=== PATIENT | male | born 1980 | race Caucasian/White ===

== ENCOUNTER 2024-02-28 06:14 | Emergency (ER) | payer BC, SELFPAY ==
[2024-02-28 06:16] VITALS: BP 118/70; PULSE 62; RESP 26; TEMP 36.4; O2SAT 97; BMI 28.4
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
[2024-02-28] MEDS: diphenhydrAMINE 25MG CAPSULE 25 MG PO (06:42)
--- NOTE | 2024-02-28 06:43 | PC.NURSE ---
Pt states he's not able to quit itching. This RN gave him Benadryl and will evaluate after.
[2024-02-28 07:12] VITALS: BP 117/89; PULSE 92; RESP 17; O2SAT 97
[2024-02-28 07:29] VITALS: BP 117/89; PULSE 95; RESP 18; TEMP 36.7; O2SAT 94
== END 2024-02-28 07:32 | disposition home or self-care (01) ==
PROVIDERS: Emergency Provider Emergency Medicine
DX: L50.0 Allergic urticaria (principal); R00.0 Tachycardia, unspecified; F41.9 Anxiety disorder, unspecified; F17.210 Nicotine dependence, cigarettes, uncomplicated; T50.995A Adverse effect of other drugs, medicaments and biological substances, initial encounter
CPT/HCPCS: 99283

== ENCOUNTER 2024-02-29 18:07 | Emergency (ER) | payer BC, SELFPAY ==
[2024-02-29] VITALS (12 sets, daily range): BP systolic 102–151; BP diastolic 67–95; PULSE 69–121; RESP 16–24; TEMP 36.7–37; O2SAT 91–99; BMI 24.3
--- NOTE | 2024-02-29 18:23 | ED_ITS ---
<Statement entered by Rachelle Wong MD - 02/29/24 22:55> I was consulted by the ANDREW, and we discussed the complexity of the problems being addressed. I approved the treatment and management plan for this patient's care in the emergency department, thus performing a substantive portion of the medical decision making. Rachelle Wong MD, LEO, FACEP Discharge Plan Disposition Patient Disposition: Xfer Short-Term Hosp Condition: Good Chief Complaint: Abdominal Pain Prescriptions Prescriptions: No Action oxycodone 5 mg tablet 5 mg PO Q6H PRN (Reason: pain) Qty: 10 0RF epinephrine 0.3 mg/0.3 mL auto-injector 0.3 mg IM Q15M PRN (Reason: anaphylaxis) Qty: 2 0RF Rx Instructions: for 2 doses Referrals Follow up/Referrals: Provider,Nehemias, [Primary Care Provider] - See instructions Activity Restrictions/Add. Instructions Additional Instructions/Restrictions: Patient to be transferred to the hospital medicine service at [facility] in care of Dr Mcmillan Clinical Impressions Clinical Impression: Sepsis without septic shock, Dehiscence of operative wound Stand Alone Forms Stand Alone Forms: Transfer Record - ED Instructions Patient Instructions: DI for Acute Abdominal Pain Discharge ED Provider: Rachelle Wong General Adult HPI General Chief complaint: Abdominal Pain Stated complaint: recent surgery Time Seen by Provider: 02/29/24 18:22 History of Present Illness HPI narrative: Patient presents for evaluation of acute abdominal pain. Patient is postoperative day 12 of a diverting ileostomy. Patient initially had a Fajardo's pouch procedure and was scheduled for a ostomy takedown on 02/17/2024. However it was not able to be reversed initially and thus the surgeon created a loop ileostomy. Patient was discharged on 02/24/2024. Patient has been doing well until yesterday when he developed an anaphylactic reaction to his pain medicine. He was seen in our ER yesterday and discontinued from his hydrocodone and placed on oxycodone. Patient reports that he began having pain in the ostomy location today and has progressed to the point where he can tolerate nothing by mouth without pain. Denies chest pain fever chills hemoptysis medic easier melena hematemesis. Patient cannot tell me how much ostomy output has had. On arrival patient had succus over his incision site from a poorly sealed ostomy appliance. Related Data Previous Rx's Medication Instructions Recorded epinephrine 0.3 mg/0.3 mL 0.3 mg (0.3 mL) IM Q15M PRN 02/28/24 injection, auto-injector anaphylaxis #2 ea oxycodone 5 mg tablet 5 mg PO Q6H PRN pain #10 tabs 02/28/24 Allergies Allergy/AdvReac Type Severity Reaction Status Date / Time meperidine [From Demerol] Allergy Severe Difficulty Verified 02/28/24 07:20 Breathing hydrocodone Allergy Intermediate Verified 02/28/24 07:20 [facility] Disclaimer: The information contained in this section may have been updated after the patient was seen, as this information can be updated by other users. Social History (Updated 02/28/24 @ 07:29 by Asya Angel MD) Smoking Status: Current every day smoker alcohol intake: never current occupational status: employed Travel in the last 8 weeks: None ROS Obtained: Yes Systems reviewed as appropriate & no additional complaints except as documented Physical Exam General General appearance: alert and in no apparent distress Respiratory Respiratory exam: Present normal lung sounds bilaterally Cardiovascular Cardiovascular exam: Present regular rate and normal rhythm Abdominal Exam Abdominal exam: Present soft, distention, tenderness (Patient is tender in the right lower quadrant and over the surgical incision), normal bowel sounds and other (Actual surgical site while it appears tender does not appear to be draining or fluctuant and has normal scab. He did however have succus pouring over the wound from a poorly sealed ostomy device); Absent guarding, rebound or rigidity Extremities Exam Extremities exam: Present normal inspection and full ROM Back Exam Back exam: Present normal inspection and full ROM Neurological Exam Neurological exam: Present alert and oriented X3 Medical Decision Making Medical Records Medical records reviewed: Yes I reviewed the patient's medical records. Luis Inquiry Pt receiving controlled substance: No Vital Signs: 02/29/24 18:08 02/29/24 18:30 02/29/24 18:41 Temperature 98.6 F Temperature Source Oral Pulse Rate 112 H 109 H Pulse Rate [Right] 121 H Respiratory Rate 24 23 16 Blood Pressure 124/89 124/89 Blood Pressure [Right Arm] 151/95 H Blood Pressure Mean [Right Arm] 113 Blood Pressure Source [Right Arm] Automatic Cuff 02 Sat by Pulse Oximetry 99 95 93 L Oxygen Delivery Method Room Air 02/29/24 19:01 02/29/24 19:30 02/29/24 20:00 Temperature Temperature Source Pulse Rate 102 H 86 80 Pulse Rate [Right] Respiratory Rate 17 20 18 Blood Pressure 122/77 110/69 108/67 L Blood Pressure [Right Arm] Blood Pressure Mean [Right Arm] Blood Pressure Source [Right Arm] 02 Sat by Pulse Oximetry 92 L 92 L 91 L Oxygen Delivery Method Room Air Room Air 02/29/24 20:30 02/29/24 21:00 02/29/24 21:30 Temperature Temperature Source Pulse Rate 77 74 69 Pulse Rate [Right] Respiratory Rate 16 18 16 Blood Pressure 109/74 L 104/72 L 102/69 L Blood Pressure [Right Arm] Blood Pressure Mean [Right Arm] Blood Pressure Source [Right Arm] 02 Sat by Pulse Oximetry 92 L 93 L 94 L Oxygen Delivery Method Room Air Lab Data Lab results reviewed: Yes I reviewed the patient's lab results. Lab Results 02/29/24 18:18: WBC 18.4 H, RBC 5.11, Hgb 15.2, Hct 46.0, MCV 90.1, MCH 29.7, MCHC 33.0, RDW 13.8, Plt Count 777 H, MPV 7.4, Neut % (Auto) 79.2, Lymph % (Auto) 15.9, [place] % (Auto) 3.9, Eos % (Auto) 0.5, Baso % (Auto) 0.5, Neut # (Auto) 14.5 H, Lymph # (Auto) 2.9, [place] # (Auto) 0.7, Eos # (Auto) 0.1, Baso # (Auto) 0.1, Total Counted 100, Neutrophils % (Manual) 75, Lymphocytes % (Manual) 19, Monocytes % (Manual) 6, Platelet Estimate Marked increase, RBC Morphology Normal, Sodium 138, Potassium 4.0, Chloride 105, Carbon Dioxide 24, Anion Gap 13.0, BUN 14, Creatinine 1.40 H, Estimated Creat Clear 69, Estimated GFR 55 L, Est GFR ( Amer) 67, Glucose 129 H, Lactate 2.2 H, Calcium 8.9, Magnesium 1.9, Total Bilirubin 0.2, AST 41, ALT 50, Alkaline Phosphatase 123, Total Protein 7.5, Albumin 3.9, Globulin 3.6 H, Albumin/Globulin Ratio 1.1 02/29/24 18:18 02/29/24 18:18 Orders (Tests/Meds): ED MEDICATIONS Generic Name Dose Route Start Last Admin Trade Name Freq PRN Reason Stop Dose Admin Vancomycin HCl 1,000 mg/ 250 mls @ 125 mls/hr 02/29/24 21:45 Sodium Chloride IV 02/29/24 23:44 ONCE ONE Piperacillin Sod/Tazobactam 50 mls @ 100 mls/hr 02/29/24 21:36 02/29/24 21:38 Sod 3.375 gm/ Sodium Chloride IV 02/29/24 22:05 100 mls/hr Q6H ONE Administration Miscellaneous 1 each 02/29/24 21:30 02/29/24 21:41 Vancomycin Consult Request NOTAPPLIC 03/30/24 21:29 1 each CONSULT [facility] Administration Discontinued Medications Generic Name Dose Route Start Last Admin Trade Name Freq PRN Reason Stop Dose Admin Acetaminophen 1,000 mg 02/29/24 18:35 02/29/24 18:58 Acetaminophen 1,000mg/100ml Vial IV 02/29/24 18:36 1,000 mg ONCE ONE Administration Hydromorphone HCl 0.5 mg 02/29/24 18:44 02/29/24 18:58 Hydromorphone 2mg/Ml Syringe IV 02/29/24 18:45 0.5 mg ONCE ONE Administration Lactated Ringer's 1,000 mls @ 999 mls/hr 02/29/24 18:35 02/29/24 18:58 Lactated Ringer's 1000 Ml Bag IV 02/29/24 19:35 999 mls/hr .Q1H1M ONE Administration Piperacillin Sod/Tazobactam 50 mls @ 100 mls/hr 02/29/24 21:26 02/29/24 21:38 Sod 3.375 gm/ Sodium Chloride IV 02/29/24 21:55 Not Given ONCE ONE Iopamidol 75 ml 02/29/24 19:16 02/29/24 19:18 Iopamidol-370 (76%);100ml Bottle IV 02/29/24 19:17 75 ml ONCE ONE Administration Ketorolac Tromethamine 15 mg 02/29/24 18:35 02/29/24 18:56 Ketorolac 30mg/Ml Vial IV 02/29/24 18:36 15 mg ONCE ONE Administration Ondansetron HCl 4 mg 02/29/24 18:35 02/29/24 18:57 Ondansetron 4mg/2ml Vial IV 02/29/24 18:36 4 mg ONCE ONE Administration Sodium Chloride 10 ml 02/29/24 19:16 02/29/24 19:17 Sodium Chloride 0.9% 10ml Syr (Rad Only) IV 02/29/24 19:17 10 ml ONCE ONE Administration ORDERS Category Date Time Status CT abdomen pelvis w con Stat Cat Scan 02/29/24 18:35 Completed CBC w/Auto Diff [Complete Blood Count Auto Diff] Stat Lab 02/29/24 18:18 Completed CMP [Comprehensive Metabolic Panel] Stat Lab 02/29/24 18:18 Completed Lactic Acid Stat Lab 02/29/24 18:18 Completed Magnesium Stat Lab 02/29/24 18:18 Completed Blood Culture Stat Micro 02/29/24 21:25 Ordered Medical Decision Narrative: In summary patient is a 3-year-old male who presents to the emergency department for evaluation of acute abdominal pain. Patient is initially normotensive tachycardic with a heart rate of 121 upon arrival, afebrile. Physical exam is remarkable for tenderness to palpation in the right lower quadrant and over the suture site but no obvious visible dehiscence or drainage or fluctuance currently bowel sounds are normal active. Stoma is pink. Differential diagnosis includes abscess versus dehiscence versus bowel obstruction. Initial workup will be conducted with hematologic labs CT scan abdomen pelvis. Initial interventions include crystalloid bolus Toradol Tylenol Dilaudid. Initial workup reviewed by me shows the patient is a white count of 18,000 with a left shift and my informal interpretation of his CT scan abdomen pelvis shows that he has possible early anastomotic breakdown of the sigmoid site. Upon repeat evaluation patient did not receive significant relief of his pain however he appears much more comfortable than on arrival. Given this I had an interactive discussion with the operating surgeon Dr. Mercado, the on-call surgeon Dr. Disla, and the hospitalist at [facility] regarding patient and patient management. All have agreed to accept the patient in transfer for further evaluation and care Critical Care Critical Care Time Critical Care Time: No
--- NOTE | 2024-02-29 18:35 | CT_ITS ---
PROCEDURE INFORMATION: Exam: CT Abdomen And Pelvis With Contrast Exam date and time: 02/29/2024 7:12 PM Age: 43 years old Clinical indication: Abdominal pain; Additional info: Acute abdominal pain , pod#12 ostomy formation TECHNIQUE: Imaging protocol: Computed tomography of the abdomen and pelvis with contrast. Radiation optimization: All CT scans at this facility use at least one of these dose optimization techniques: automated exposure control; mA and/or kV adjustment per patient size (includes targeted exams where dose is matched to clinical indication); or iterative reconstruction. Contrast material: ISOVUE; Contrast volume: 75 ml; Contrast route: IV; COMPARISON: No relevant prior studies available. FINDINGS: Lungs: Minor dependent change at each lung base. Pleural spaces: No pleural fluid or pneumothorax peerPostprandial gallbladder is contracted. Heart: Heart size is normal. Liver: Normal configuration. Homogeneous parenchyma. Gallbladder and bile ducts: No regional inflammation. No calcified stones. No ductal dilation. Pancreas: Normal. No ductal dilation. Spleen: Normal. No splenomegaly. Adrenal glands: Normal configuration. Kidneys and ureters: Kidneys enhance symmetrically and demonstrate no evidence of mass, calculus, obstruction, or inflammation. Stomach and bowel: There is a loop ileostomy in the right lower quadrant. There are changes of recent closure of left abdominal incision which may have been a prior stoma site. A sigmoid suture line is noted. There is moderate inflammatory change surrounding the sigmoid colon, not unexpected. No abnormal fluid collection. Bowel enhances normally. Appendix: Normal appendix is confirmed. Intraperitoneal space: No free air. No significant fluid collection. Vasculature: Retroaortic left renal vein. Lymph nodes: No enlarged lymph nodes. Urinary bladder: Unremarkable as visualized. Reproductive: Physiologic appearance for age. Bones/joints: Normal spine, pelvis, and hips. Prior left femoral ORIF. No acute fracture or destructive bony lesion. Soft tissues: Small gas bubbles are seen in the soft tissues surrounding the sigmoid colon, greater than expected for postop day 12. IMPRESSION: There are changes of sigmoid resection with creation of a right lower quadrant loop ileostomy. Surrounding a sigmoid resection site, there is edema in the overlying fat, and several ectopic gas bubbles worrisome for infection or suture line dehiscence. No free fluid or abscess.
[2024-02-29 18:45] LABS: Basophils # 0.1 K/mm3 (0-0.2); Basophils % 0.5 % (0.1-2.0); Eosinophils # 0.1 K/mm3 (0.0-0.4); Eosinophils % 0.5 % (0.1-12.0); Hemoglobin 15.2 g/dL (14.1-18.0); Lymphocytes # 2.9 K/mm3 (0.7-4.5); Lymphocytes % 15.9 % (10-50); Mean Corpuscular Hemoglobin 29.7 pg (27.0-31.2); Mean Corpuscular Volume 90.1 fl (80-94); Mean Platelet Volume 7.4 fl (7.4-10.4); Monocytes # 0.7 K/mm3 (0.1-1.0); Monocytes % 3.9 % (1.7-9.3); Neutrophils # 14.5 K/mm3 (1.8-7.8); Neutrophils % 79.2 % (37.0-80.0); Platelet Count 777 K/mm3 (142-424); Red Blood Count 5.11 M/mm3 (4.60-6.20); Red Cell Distribution Width 13.8 % (11.5-17.5); White Blood Count 18.4 K/mm3 (4.8-10.8)
[2024-02-29 18:47] LABS: Chloride 105 mmol/L (98-107); MANUAL DIFFERENTIAL MANUAL DIFFERENTIAL (MANUAL DIFF); Sodium 138 mmol/L (136-145)
[2024-02-29 18:50] LABS: Alanine Aminotransferase 50 U/L (12-78); Albumin Level 3.9 g/dl (3.5-5.0); Albumin/Globulin Ratio 1.1 (1.1-1.8); Alkaline Phosphatase 123 U/L (38-126); Aspartate Amino Transferase 41 U/L (17-59); Bilirubin,Total 0.2 mg/dl (0.2-1.3); Blood Urea Nitrogen 14 mg/dl (9-20); Carbon Dioxide 24 mmol/L (22.0-30.0); Creatinine Clearance Estimated 69 mL/min (50-200); Estimated Glomerular Filt Rate 55 ml/min (>60); GFR (African American) 67 ML/MIN (>60); Globulin 3.6 g/dL (1.3-3.2); Glucose 129 mg/dl (74-100); Total Protein,Serum 7.5 g/dl (6.3-8.2)
[2024-02-29 18:51] LABS: Calcium 8.9 mg/dl (8.4-10.2); Magnesium 1.9 mg/dl (1.6-2.3)
[2024-02-29] MEDS: KETOROLAC 30MG/ML VIAL 15 MG IV (18:56)
[2024-02-29] MEDS: ONDANSETRON 4MG/2ML VIAL 4 MG IV (18:57)
[2024-02-29] MEDS: HYDROMORPHONE 2MG/ML SYRINGE 0.5 MG IV ×2 (18:58→22:48)
[2024-02-29] MEDS: LACTATED RINGERS 1000ML 1,000 ML 999 ML IV (18:58)
[2024-02-29] MEDS: ACETAMINOPHEN 1,000MG/100ML VIAL 1000 MG IV (18:58)
--- NOTE | 2024-02-29 18:59 | PC.NURSE ---
pt asked for water. Let him know he is NPO at this time. Gave damp wash-cloth for comfort
--- NOTE | 2024-02-29 19:02 | PC.NURSE ---
[facility] called, asking about allergies. Pt states he can take Dilaudid : just fine, I had in after my surgery
[2024-02-29] MEDS: SODIUM CHLORIDE 0.9% 10ML SYR (RAD ONLY) 10 ML IV (19:17)
[2024-02-29] MEDS: IOPAMIDOL-370 (76%);100ML BOTTLE 75 ML IV (19:18)
[2024-02-29 19:27] LABS: Lactic Acid 2.2 mmol/L (0.7-2.1)
[2024-02-29 19:55] LABS: Lymphocytes % 19 % (10-50); Monocytes % 6 % (2-9); Neutrophils % 75 % (42-76); Total Cells Counted 100
[2024-02-29 20:00] LABS: RBC Morphology Normal
[2024-02-29 20:03] LABS: Platelet Estimate Marked Increase
--- NOTE | 2024-02-29 21:19 | PC.NURSE ---
patients son was asking if the doctor had spoken to patients doctor, per Nasima Son as soon as CT is back he will speak to patients doctor. family and patient updated
--- NOTE | 2024-02-29 21:32 | PC.NURSE ---
[facility] contacted re: transfer to [place], Dr. Disla is the surgeon financial consultant, they will call back after speaking to hospitalist and confirm if they have a room available
[2024-02-29] MEDS: PIPERACILLIN/TAZO 3.375 GM in 0.9 % SODIUM CHLORIDE 50 ML IV (21:38)
--- NOTE | 2024-02-29 21:40 | PC.NURSE ---
[place] transfer returned call for physician. spoke with marilyn, this is dr esther elizondo for on-call surgery
[2024-02-29] MEDS: VANCOMYCIN CONSULT REQUEST 1 EACH NOTAPPLIC (21:41)
--- NOTE | 2024-02-29 21:42 | PC.NURSE ---
accepted per dr elizondo.
--- NOTE | 2024-02-29 22:14 | PC.NURSE ---
[facility]. PT ASSIGNMENT TO [facility]; [phone]
[2024-02-29] MEDS: VANCOMYCIN HCL 1,000 MG in 0.9 % SODIUM CHLORIDE 250 ML 125 MG IV (22:19)
--- NOTE | 2024-02-29 22:34 | PC.NURSE ---
[facility] called for patient transport to [facility]
== END 2024-02-29 23:02 | disposition short-term general hospital (02) ==
PROVIDERS: Physician Assistant; Emergency Provider Student in an Organized Health Care Education/Training Program
DX: A41.9 Sepsis, unspecified organism (principal); R10.31 Right lower quadrant pain; T81.31XA Disruption of external operation (surgical) wound, not elsewhere classified, initial encounter; R74.02 Elevation of levels of lactic acid dehydrogenase [LDH]; F17.210 Nicotine dependence, cigarettes, uncomplicated; Z98.890 Other specified postprocedural states
CPT/HCPCS: 74177; 80053; 83605; 83735; 85007; 85025; 87040; 96361; 96365; 96366; 96375; 96376; 99285; J0131; J1170; J1885; J2405; J2543; J3370; J7030; J7120; Q9967

== ENCOUNTER 2024-04-27 20:19 | Emergency (ER) | payer BC, SELFPAY ==
[2024-04-27 20:30] VITALS: BP 126/105; PULSE 86; O2SAT 98
--- NOTE | 2024-04-27 20:32 | CT_ITS ---
PROCEDURE INFORMATION: Exam: CT Abdomen And Pelvis With Contrast Exam date and time: 04/27/2024 9:12 PM Age: 43 years old Clinical indication: Abdominal pain; Additional info: Lower abd pain, increased stool output in ostomy TECHNIQUE: Imaging protocol: Computed tomography of the abdomen and pelvis with contrast. Radiation optimization: All CT scans at this facility use at least one of these dose optimization techniques: automated exposure control; mA and/or kV adjustment per patient size (includes targeted exams where dose is matched to clinical indication); or iterative reconstruction. Contrast material: ISOVUE; Contrast volume: 75 ml; Contrast route: IV; COMPARISON: CT ABDOMEN PELVIS W CON 02/29/2024 7:12 PM FINDINGS: Lungs: Clear basilar lung parenchyma. Pleural spaces: No pleural fluid. Heart: Normal heart size. Liver: Normal configuration. Homogeneous parenchyma. Gallbladder and biliary ducts: No regional inflammation. No calcified stones. No ductal dilation. Pancreas: Normal. No ductal dilation. Spleen: Normal. No splenomegaly. Adrenal glands: Normal configuration. Kidneys and ureters: Kidneys enhance symmetrically and demonstrate no evidence of mass, calculus, obstruction, or inflammation. Stomach and bowel: A right lower quadrant loop ileostomy is noted. There is a patent sigmoid suture line. Edema is anterior and superior to the sigmoid suture line has improved but not completely resolved when compared to the prior exam. Appendix: Normal appendix is confirmed. Intraperitoneal space: No free air. No significant fluid collection. Vasculature: Normal caliber arterial structures. Lymph nodes: Several reactive sized mesenteric lymph nodes have decreased in size but have not completely resolved compared to prior. Urinary bladder: Decompressed urinary bladder without visible mural edema. Reproductive: Physiologic appearance for age. Bones/joints: No fracture or destructive lesion. Soft tissues: No perineal/perianal abscess or inflammation. Healed midline incision. IMPRESSION: No visible bowel inflammation to explain increased ileostomy output. Improving postsurgical change in the sigmoid colon.
[2024-04-27 20:34] VITALS: BP 126/105; PULSE 83; RESP 22; TEMP 36.7; O2SAT 96; BMI 28.8
--- NOTE | 2024-04-27 20:35 | ED_ITS ---
Discharge Plan Disposition Patient Disposition: Home, Self-Care Prescriptions Prescriptions: New dicyclomine 20 mg tablet 20 mg PO TID PRN (Reason: abdominal pain or spasm) 7 Days Qty: 21 0RF promethazine 25 mg tablet 25 mg PO TID PRN (Reason: nausea and vomiting) 5 Days Qty: 20 0RF No Action oxycodone 5 mg tablet 5 mg PO Q6H PRN (Reason: pain) Qty: 10 0RF epinephrine 0.3 mg/0.3 mL auto-injector 0.3 mg IM Q15M PRN (Reason: anaphylaxis) Qty: 2 0RF Rx Instructions: for 2 doses Referrals Follow up/Referrals: Provider,Referral, MD [Primary Care Provider] - See instructions Activity Restrictions/Add. Instructions Additional Instructions/Restrictions: No definitive surgical emergency found today on your CT scan or your lab test. No explanation radiographically of your symptoms and you have improving postoperative changes in comparison with the CT scan from February. I recommend that you call your surgeon tomorrow and closely follow-up with them. In the meantime make sure you are drinking plenty of fluids taking your nausea medication in your spasmodic medication that was prescribed tonight. Clinical Impressions Clinical Impression: Abdominal pain, lower, Nausea vomiting and diarrhea Instructions Patient Instructions: DI for Acute Abdominal Pain Print Language Print Language: Mongolian Discharge ED Provider: Rachelle Wong General Adult HPI General Chief complaint: Abdominal Pain Stated complaint: abd pain Time Seen by Provider: 04/27/24 20:23 History of Present Illness HPI narrative: Patient is a 43-year-old who is previously healthy September of this year where he presented to [facility] with ruptured diverticulitis. Was operated on by Dr. De La Vega and has been followed by that physician since that time. He is from this region however. States that he had a colostomy reversal in January of this year that did not go as planned and instead of having it fixed had a colostomy that was placed on the opposite side/his right lower quadrant. States that over the last 48 hours she has had increased abdominal pain over the entire lower aspect of his abdomen and has had nausea vomiting increase stool output that is watery. No fevers or chills or any other symptoms. Has not seen any of our surgeons at this hospital in follow-up. Related Data Previous Rx's ?Medication ?Instructions ?Recorded epinephrine 0.3 mg/0.3 mL 0.3 mg (0.3 mL) IM Q15M PRN 02/28/24 injection, auto-injector anaphylaxis #2 ea oxycodone 5 mg tablet 5 mg PO Q6H PRN pain #10 tabs 02/28/24 dicyclomine 20 mg tablet 20 mg PO TID PRN abdominal pain or 04/27/24 spasm 7 days #21 tabs promethazine 25 mg tablet 25 mg PO TID PRN nausea and 04/27/24 vomiting 5 days #20 tabs Allergies Allergy/AdvReac Type Severity Reaction Status Date / Time meperidine [From Demerol] Allergy Severe Difficulty Verified 02/28/24 07:20 Breathing hydrocodone Allergy Intermediate Verified 02/28/24 07:20 morphine Allergy Verified 04/27/24 20:40 PFSH [facility] Disclaimer: The information contained in this section may have been updated after the patient was seen, as this information can be updated by other users. Social History (Updated 02/28/24 @ 07:29 by Asya Angel MD) Smoking Status: Current every day smoker alcohol intake: never current occupational status: employed Travel in the last 8 weeks: None ROS Obtained: Yes All systems reviewed & no additional complaints except as documented Physical Exam General General appearance: alert Respiratory Respiratory exam: Present normal lung sounds bilaterally Cardiovascular Cardiovascular exam: Present regular rate and normal rhythm Abdominal Exam Abdominal exam: Present soft and tenderness (Lower abdominal tenderness there is loose stool noted in ostomy bag on the right lower quadrant no rebound or guarding or masses felt) Neurological Exam Neurological exam: Present alert and oriented X3 Medical Decision Making Luis Inquiry Pt receiving controlled substance: No Vital Signs: 04/27/24 20:30 04/27/24 20:34 04/27/24 21:00 Temperature 98.1 F Temperature Source Oral Pulse Rate 86 80 Pulse Rate [Left Radial] 83 Respiratory Rate 22 Blood Pressure 126/105 H 114/83 Blood Pressure [Right Arm] 126/105 H Blood Pressure Mean 112 93 Blood Pressure Mean [Right Arm] 112 Blood Pressure Source [Right Arm] Automatic Cuff 02 Sat by Pulse Oximetry 98 96 100 Oxygen Delivery Method Room Air Room Air Room Air Lab Data Lab results reviewed: Yes I reviewed the patient's lab results. Lab Results 04/27/24 20:38: WBC 12.8 H, RBC 5.14, Hgb 16.5, Hct 48.1, MCV 93.6, MCH 32.2 H, MCHC 34.4, RDW 14.2, Plt Count 491 H, MPV 7.4, Neut % (Auto) 62.5, Lymph % (Auto) 28.2, [place] % (Auto) 7.0, Eos % (Auto) 1.6, Baso % (Auto) 0.8, Neut # (Auto) 8.0 H, Lymph # (Auto) 3.6, [place] # (Auto) 0.9, Eos # (Auto) 0.2, Baso # (Auto) 0.1, Sodium 138, Potassium 3.6, Chloride 110 H, Carbon Dioxide 24, Anion Gap 7.6, BUN 8 L, Creatinine 1.10, Estimated Creat Clear 104, Estimated GFR 73, Est GFR ( Amer) 88, Glucose 95, Calcium 8.7, Phosphorus 3.5, Magnesium 2.1, Total Bilirubin 0.7, AST 32, ALT 33, Alkaline Phosphatase 86, Total Protein 7.3, Albumin 4.3, Globulin 3.0, Albumin/Globulin Ratio 1.4, Lipase 41 04/27/24 20:55: Lactate 1.5 04/27/24 20:38 04/27/24 20:38 Orders (Tests/Meds): ED MEDICATIONS Generic Name Dose Route Start Last Admin Trade Name Freq PRN Reason Stop Dose Admin Sodium Chloride 10 ml 04/27/24 21:11 04/27/24 21:12 Sodium Chloride 0.9% 10ml Syr (Rad Only) IV 05/27/24 21:10 10 ml NEEDED PRN Administration Maintain IV Site Discontinued Medications Generic Name Dose Route Start Last Admin Trade Name Freq PRN Reason Stop Dose Admin Acetaminophen 1,000 mg 04/27/24 20:45 04/27/24 20:54 Acetaminophen 1,000mg/100ml Vial IV 04/27/24 20:46 1,000 mg ONCE ONE Administration Lactated Ringer's 1,000 mls @ 999 mls/hr 04/27/24 20:45 04/27/24 20:44 Lactated Ringer's 1000 Ml Bag IV 04/27/24 21:45 999 mls/hr .Q1H1M HEAVENLY Administration Iopamidol 75 ml 04/27/24 21:11 04/27/24 21:12 Iopamidol-370 (76%);100ml Bottle IV 04/27/24 21:12 75 ml ONCE ONE Administration Morphine Sulfate 4 mg 04/27/24 20:32 04/27/24 20:47 Morphine 4mg/Ml Syringe IV 04/27/24 20:33 Not Given ONCE ONE Ondansetron HCl 4 mg 04/27/24 20:32 04/27/24 20:44 Ondansetron 4mg/2ml Vial IV 04/27/24 20:33 4 mg ONCE ONE Administration ORDERS Category Date Time Status CT abdomen pelvis w con Stat Cat Scan 04/27/24 20:32 Completed CBC w/Auto Diff [Complete Blood Count Auto Diff] Stat Lab 04/27/24 20:38 Completed CMP [Comprehensive Metabolic Panel] Stat Lab 04/27/24 20:38 Completed Lactic Acid Stat Lab 04/27/24 20:55 Completed Lipase Stat Lab 04/27/24 20:38 Completed Magnesium Stat Lab 04/27/24 20:38 Completed Phosphorous Stat Lab 04/27/24 20:38 Completed Medical Decision Narrative: 43-year-old with history of ruptured diverticulitis status post colostomy attempted reversal and failure and additional colostomy surgery. He is followed by surgeon at the [facility]. Presents today with lower abdominal pain over the last few days with nausea and vomiting and increased to output that is loose differential includes viral gastroenteritis bowel obstruction intra-abdominal infection etc. Will get a contrasted CT scan for further evaluation and administer IV fluids pain medicine nausea medicine in addition to labs and reassess Reassessment 10:23 PM patient still complaining of abdominal discomfort but exam is largely unchanged. CT scan performed which I personally interpreted and compared to CT scan from February of this year. Radiology also read this and compared to studies. There is some edema in the abdominal wall but this is improved significantly since the last scan. No definitive abnormality radiographically to explain the patient's symptoms. There is improving edema and post operative changes. Nothing acute. Does have a nonspecific mild leukocytosis which is improved from the past and her thrombocytosis also which is improved from the past. Although suggesting there may be some chronic inflammatory changes but it has improved. I offered to have the patient closely follow-up with our surgeon he declined this. Also I advised that the patient call his own surgeon tomorrow. States he has had a bad experience with [facility] but may try to call his surgeon. He has a specialist follow-up in [place] where he is from later this month. Overall no definitive emergent medical condition identified patient discharged in a stable condition with advice for close outpatient follow-up with his surgeon. Critical Care Critical Care Time Critical Care Time: No
[2024-04-27] MEDS: LACTATED RINGERS 1000ML 1,000 ML 999 ML IV (20:44)
[2024-04-27] MEDS: ONDANSETRON 4MG/2ML VIAL 4 MG IV (20:44)
[2024-04-27 20:47] LABS: Basophils # 0.1 K/mm3 (0-0.2); Basophils % 0.8 % (0.1-2.0); Eosinophils # 0.2 K/mm3 (0.0-0.4); Eosinophils % 1.6 % (0.1-12.0); Hematocrit 48.1 % (42.0-52.0); Hemoglobin 16.5 g/dL (14.1-18.0); Lymphocytes # 3.6 K/mm3 (0.7-4.5); Lymphocytes % 28.2 % (10-50); Mean Corpuscular HGB Conc 34.4 g/dL (31.8-35.4); Mean Corpuscular Hemoglobin 32.2 pg (27.0-31.2); Mean Corpuscular Volume 93.6 fl (80-94); Mean Platelet Volume 7.4 fl (7.4-10.4); Monocytes # 0.9 K/mm3 (0.1-1.0); Neutrophils % 62.5 % (37.0-80.0); Platelet Count 491 K/mm3 (142-424); Red Blood Count 5.14 M/mm3 (4.60-6.20); Red Cell Distribution Width 14.2 % (11.5-17.5); White Blood Count 12.8 K/mm3 (4.8-10.8)
[2024-04-27 20:52] LABS: Albumin Level 4.3 g/dl (3.5-5.0); Chloride 110 mmol/L (98-107); Potassium 3.6 mmoL/L (3.5-5.1); Sodium 138 mmol/L (136-145)
--- NOTE | 2024-04-27 20:53 | PC.NURSE ---
lactic drawn and sent to lab
[2024-04-27] MEDS: ACETAMINOPHEN 1,000MG/100ML VIAL 1000 MG IV (20:54)
[2024-04-27 20:55] LABS: Alanine Aminotransferase 33 U/L (12-78); Albumin/Globulin Ratio 1.4 (1.1-1.8); Alkaline Phosphatase 86 U/L (38-126); Anion Gap 7.6 mEq/L (5-15); Aspartate Amino Transferase 32 U/L (17-59); Bilirubin,Total 0.7 mg/dl (0.2-1.3); Blood Urea Nitrogen 8 mg/dl (9-20); Carbon Dioxide 24 mmol/L (22.0-30.0); Creatinine Clearance Estimated 104 mL/min (50-200); Estimated Glomerular Filt Rate 73 ml/min (>60); GFR (African American) 88 ML/MIN (>60); Lipase 41 U/L (23-300); Phosphorous 3.5 mg/dl (2.5-4.5); Total Protein,Serum 7.3 g/dl (6.3-8.2)
[2024-04-27 20:56] LABS: Calcium 8.7 mg/dl (8.4-10.2); Glucose 95 mg/dl (74-100); Magnesium 2.1 mg/dl (1.6-2.3)
[2024-04-27 21:00] VITALS: BP 114/83; PULSE 80; O2SAT 100
[2024-04-27 21:09] LABS: Lactic Acid 1.5 mmol/L (0.7-2.1)
[2024-04-27] MEDS: IOPAMIDOL-370 (76%);100ML BOTTLE 75 ML IV (21:12)
[2024-04-27] MEDS: SODIUM CHLORIDE 0.9% 10ML SYR (RAD ONLY) 10 ML IV (21:12)
--- NOTE | 2024-04-27 21:36 | PC.NURSE ---
Pt complaining of continuing abd pain, provider aware, no new orders at this time
[2024-04-27 22:31] VITALS: BP 116/80; PULSE 70; RESP 18; TEMP 36.8; O2SAT 95
== END 2024-04-27 22:33 | disposition home or self-care (01) ==
PROVIDERS: Emergency Provider Student in an Organized Health Care Education/Training Program
DX: R10.30 Lower abdominal pain, unspecified (principal); R11.2 Nausea with vomiting, unspecified; R19.7 Diarrhea, unspecified; Z93.3 Colostomy status; Z87.19 Personal history of other diseases of the digestive system
CPT/HCPCS: 74177; 80053; 83605; 83690; 83735; 84100; 85025; 96361; 96374; 96375; 99284; J0131; J2405; J7120; Q9967